=== PATIENT | male | born 1985 | race African-American/Black ===

== ENCOUNTER 2018-04-27 19:11 | Emergency (ER) | payer MEDICAID ==
[~2018-04-27] VITALS: Ht 177.8 cm; Wt 80.0 kg
[2018-04-27] MEDS ORDERED: PHEN-434 PO (19:14)
[2018-04-27] MEDS ORDERED: KETOROLAC 30MG/ML VIAL IM STA (19:55)
[2018-04-27] MEDS ORDERED: PHENYTOIN SODIUM EXTENDED 100MG CAPSULE PO ONE (20:00)
[2018-04-27 23:07] VITALS: BP 132/83
== END 2018-04-27 23:22 | disposition home or self-care (01) ==
LOC: ER 19:11
DX: G40.909 Epilepsy, unspecified, not intractable, without status epilepticus (principal); S42.291A Other displaced fracture of upper end of right humerus, initial encounter for closed fracture; W01.198A Fall on same level from slipping, tripping and stumbling with subsequent striking against other object, initial encounter; Y93.89 Activity, other specified; Y92.89 Other specified places as the place of occurrence of the external cause
CPT/HCPCS: 73030; 96372; 99283; J1885; A4565

== ENCOUNTER 2018-08-07 19:04 | Inpatient (IN) | payer MEDICAID ==
[~2018-08-07] VITALS: Ht 185.4 cm; Wt 80.7 kg
[~2018-08-07 19:04] MED LIST: PHEN-434 PO
[2018-08-07] MEDS ORDERED: SODIUM CHLORIDE 0.9% 1,000 ML IV ONE (19:18)
[2018-08-07] MEDS ORDERED: LEVETIRACETAM 1000MG/100ML 100 ML IV ONE (19:30)
[2018-08-07] MEDS ORDERED: DILTIAZEM HCL 5MG/ML 5ML VIAL IV ONE (19:30)
[2018-08-07] MEDS ORDERED: PHENYTOIN SODIUM EXTENDED 100MG CAPSULE PO ONE (19:30)
[2018-08-07 19:44] LABS: BASOPHILS % 0.5 % (0.0-2.0); EOSINOPHILS % 0.2 % (0.0-5.0); HEMATOCRIT. 43.4 % (42.0-52.0); HEMOGLOBIN. 14.5 g/dL (14.0-18.0); LYMPHOCYTES % 11.5 % (20.0-50.0); MEAN CORPUSCULAR HEMOGLOBIN 32.2 pg (28.0-32.0); MEAN CORPUSCULAR VOLUME 96.3 fL (80.0-94.0); MEAN PLATELET VOLUME 9.9 fl (7.4-10.4); MONOCYTES % 10.1 % (2.0-8.0); NEUTROPHILS % 77.7 % (40.0-76.0); PLATELET 63 x1000/uL (130-400); RED CELL DISTRIBUTION WIDTH 15.1 % (11.6-14.6)
[2018-08-07 19:47] LABS: CHLORIDE 102 mEq/L (98-107)
[2018-08-07 19:51] LABS: ETHANOL BLOOD < 10 mg/dL
[2018-08-07 23:30] VITALS: BP 148/72
[2018-08-08] VITALS: BP 148/72
[2018-08-08 01:11] LABS: CLARITY URINE CLEAR (CLEAR); COLOR URINE YELLOW (YELLOW); KETONES URINE 3+ (NEGATIVE); LEUKOCYTE ESTERASE URINE NEGATIVE (NEGATIVE); NITRITE URINE NEGATIVE (NEGATIVE); OCCULT BLOOD URINE TRACE (NEGATIVE); PROTEIN URINE 2+ (NEGATIVE)
[2018-08-08] MEDS ORDERED: LORAZEPAM 2MG/ML CPJ IV PRN (01:15)
[2018-08-08] MEDS ORDERED: MORPHINE SULFATE 4 MG/ML CPJ (NOT FOR IM USE) IV PRN (01:15)
[2018-08-08 01:27] LABS: *AMPHETAMINES SCREEN URINE NEGATIVE (NEGATIVE); *BARBITURATES SCREEN URINE NEGATIVE (NEGATIVE); *BENZODIAZEPINES SCREEN URINE NEGATIVE (NEGATIVE); *COCAINE SCREEN URINE NEGATIVE (NEGATIVE)
[2018-08-08 01:28] LABS: CANNABINOID URINE SCREEN NEGATIVE (NEGATIVE); METHADONE URINE SCREEN NEGATIVE (NEGATIVE); OPIATES URINE SCREEN NEGATIVE (NEGATIVE); PHENCYCLIDINE URINE SCREEN NEGATIVE (NEGATIVE)
[2018-08-08 04:00] VITALS: BP 128/78
[2018-08-08 06:21] LABS: HEMATOCRIT. 40.8 % (42.0-52.0); HEMOGLOBIN. 13.6 g/dL (14.0-18.0); MEAN CORPUSCULAR HEMOGLOBIN 31.9 pg (28.0-32.0); MEAN CORPUSCULAR VOLUME 95.9 fL (80.0-94.0); MEAN PLATELET VOLUME 9.8 fl (7.4-10.4); PLATELET 55 x1000/uL (130-400); RED BLOOD CELL COUNT 4.26 mill/uL (4.7-6.1); RED CELL DISTRIBUTION WIDTH 14.8 % (11.6-14.6)
[2018-08-08 07:51] LABS: CHLORIDE 103 mEq/L (98-107)
[2018-08-08 08:00] VITALS: BP 135/84
[2018-08-08] MEDS ORDERED: LEVETIRACETAM 500MG/5ML CUP PO SCH (09:00)
[2018-08-08 12:00] VITALS: BP 122/75
[2018-08-08] MEDS ORDERED: DILTIAZEM HCL 30MG TABLET PO SCH (12:00)
[2018-08-08 12:14] LABS: HEPATITIS B SURFACE ANTIGEN NEGATIVE
[2018-08-08 12:43] LABS: HEPATITIS A AB IGM NEGATIVE (NEGATIVE)
[2018-08-08 14:00] LABS: PLATELET ESTIMATE DECREASED
[2018-08-08] MEDS ORDERED: PHENYTOIN SODIUM EXTENDED 100MG CAPSULE PO SCH (21:00)
== END 2018-08-08 15:00 | disposition left against medical advice (07) | DRG 53 ==
LOC: ER 19:04 → 5WST 21:34 → ENRESERV 22:36
PROVIDERS: ADMIT Internal Medicine; ATTEND Internal Medicine
DX: G40.909 Epilepsy, unspecified, not intractable, without status epilepticus (principal); D69.6 Thrombocytopenia, unspecified; F17.210 Nicotine dependence, cigarettes, uncomplicated; R03.0 Elevated blood-pressure reading, without diagnosis of hypertension; I48.91 Unspecified atrial fibrillation; R74.0 Nonspecific elevation of levels of transaminase and lactic acid dehydrogenase [LDH]; Z53.21 Procedure and treatment not carried out due to patient leaving prior to being seen by health care provider; Z91.14 Patient's other noncompliance with medication regimen; Z79.899 Other long term (current) drug therapy
CPT/HCPCS: 36415; 70551; 71045; 80048; 80061; 80185; 80305; 80320; 83880; 84443; 84484; 86705; 86709; 86803; 87340; 93005; 96365; 96366; 99285; J1953; J7030; G0480